=== PATIENT | male | born 1995 | race Caucasian/White ===

== ENCOUNTER 2019-03-15 08:15 | Emergency (ER) | payer OTHER ==
[~2019-03-15] VITALS: Ht 193 cm; Wt 83.5 kg
--- NOTE | 2019-03-15 09:07 | NUR ---
Patient discharged to home in stable conditon with brisk steady gait. Written and verbal after care instructions given to patient. Patient verbalizes understanding & compliance of instructions. ENT referral provided.
[2019-03-15 09:08] VITALS: BP 120/69
== END 2019-03-15 09:09 | disposition home or self-care (01) ==
LOC: ER 08:15
DX: H61.23 Impacted cerumen, bilateral (principal)
CPT/HCPCS: A4663